=== PATIENT | male | born 1960 | race African-American/Black ===

== ENCOUNTER → 2017-01-07 | Outpatient (CLI) | payer OTHER ==
[2013-11-29 08:09] VITALS: BP 96/67
[~2017-01-07] MED LIST: ACET-58 PO; CYCL10TA2 PO; EZET10TA18 PO; FEXO180T81 PO; GABA-586 PO; KRIL1CAP5 PO; LISI1TAB7 PO; MORP30TA83 PO; NAPR250T6 PO; OXYC30TA PO; PHEN37.5 PO; POTASSIUM CHLO10 MEQ PO; RANI75TA95 PO
--- NOTE | 2017-01-07 12:43 | RAD ---
Indication back pain for 2 weeks. AP and lateral views of the lumbar spine were obtained as well as a coned view targeted to the lumbosacral junction. Note is made of a previous examination 11/11/2013. Spinal fixation cage is noted extending from L2 through S1 similar to the previous exam. An acute finding is not seen although there are now degenerative changes at L2-3 not seen previously. This is manifested primarily as disc space narrowing. There is some associated osteophyte formation. An acute finding in the lumbar spine is not seen. Note is made, particularly on the AP view, of lucencies surrounding the fixation screws associated with L2. This suggests possible loosening. Clinical correlation as to this possibility advised. IMPRESSION: Status post fusion. No acute finding. New degenerative changes at L2-3 relative to the study 3 years ago Possible loosening associated with the fixation screws at L2
== END | disposition home or self-care (01) ==
LOC: RAD 11:46
PROVIDERS: ATTEND Neurological Surgery
DX: M54.5 Low back pain (principal); Z98.1 Arthrodesis status
CPT/HCPCS: 72100

== ENCOUNTER → 2017-04-03 | Outpatient (CLI) | payer OTHER ==
[2013-11-29 08:09] VITALS: BP 96/67
--- NOTE | 2017-04-03 14:58 | KCIC ---
CT scan of the lumbar spine without contrast 04/03/2017 CLINICAL HISTORY: Low back pain which radiates down the left leg. Spinal canal stenosis. History of previous lumbar spine surgery. The low back pain and radiculopathy has worsened since December of this year. TECHNIQUE: Unenhanced, contiguous, 0.6 mm axial sections were obtained through the lumbar spine. 3 mm reconstructed sagittal, axial and coronal images were obtained. One or more of the following individualized dose reduction techniques were utilized for this study: 1. Automated exposure control. 2. Adjustment of the mA and/or kV according to patient size. 3. Use of iterative reconstruction technique. FINDINGS: Comparison study is dated 11/24/2013. Sagittal and coronal reconstructed images demonstrate minimal S-shaped curvature of the thoracolumbar spine. There is straightening of the normal lumbar lordosis. Mild anterolisthesis of L5 in relation to S1 is noted. The patient is post laminectomy and fusion using pedicle screws, stabilizing rods and bone graft material extending from L2-3 through L5-S1. Lucency surrounds the superior pedicle screws at L2. These findings are unchanged. Degenerative changes are seen throughout the lumbar disc spaces consisting of varying degrees of disc space narrowing, vertebral endplate sclerosis and mild to moderate anterior vertebral body osteophyte formation. Vacuum disc phenomenon is seen at L2-3. On the axial images at the L1-2 disc space there is a mild generalized disc bulge. Degenerative changes are seen involving the facet joints bilaterally. These findings do not result in significant central spinal canal or neural foraminal stenosis. At the L2-3 disc space there is a mild generalized disc bulge. Degenerative changes are seen involving the facet joints, left greater than right. These findings do not result in significant central spinal canal stenosis. Mild left neural foraminal stenosis is seen. The right neural foramen is patent. At the L3-4 disc space there is a mild generalized disc bulge. Degenerative changes are seen involving the facet joints bilaterally. These findings do not result in significant central spinal canal or neural foraminal stenosis. At the L4-5 disc space there is a mild generalized disc bulge. Left paracentral/lateral disc osteophyte formation is noted. This extends into the neural foramen. Degenerative changes are seen involving the facet joints bilaterally. These findings do not result in significant central spinal canal stenosis. Mild left neural foraminal stenosis is seen. The right neural foramen is patent. At the L5-S1 disc space there is a mild generalized disc bulge. Posterior vertebral body osteophyte formation is seen which extends into the neural foramen bilaterally. Degenerative changes are seen involving the facet joints, right greater than left. These findings do not result in significant central spinal canal stenosis. Moderate to severe bilateral neural foraminal stenosis is seen. Since the previous examination there has been no significant interval change. IMPRESSION: 1. Post laminectomy and fusion extending from L2-3 to L5-S1. 2. The changes of degenerative disc disease are seen involving the lumbar spine. These findings do not result in significant central spinal canal stenosis at any level. Mild left neural foraminal stenosis is seen at L2-3 and L4-5. Moderate to severe bilateral neural foraminal stenosis is seen at L5-S1. Electronically signed by: Anthony Robles MD (04/03/2017 2:54 PM) [id number]
== END | disposition home or self-care (01) ==
LOC: KCIC CT 11:29
PROVIDERS: ATTEND Neurological Surgery
DX: M51.16 Intervertebral disc disorders with radiculopathy, lumbar region (principal); M48.061 Spinal stenosis, lumbar region without neurogenic claudication
CPT/HCPCS: 72131

== ENCOUNTER → 2017-09-15 | Outpatient (CLI) | payer OTHER | END | disposition home or self-care (01) | LOC: PNCL 08:58 | DX: M79.661 Pain in right lower leg (principal); I10 Essential (primary) hypertension; M54.5 Low back pain; R06.02 Shortness of breath | CPT/HCPCS: 99214 ==

== ENCOUNTER → 2017-09-30 | Outpatient (CLI) | payer OTHER ==
[~2017-09-30] MED LIST changes: -ACET-58 PO; -CYCL10TA2 PO; -EZET10TA18 PO; -FEXO180T81 PO; -GABA-586 PO; +IOHEXOL 180 MG/ML 10 ML VIAL.; -KRIL1CAP5 PO; +LIDOCAINE 1% PF 2 ML VIAL.; -LISI1TAB7 PO; -MORP30TA83 PO; -NAPR250T6 PO; -OXYC30TA PO; -PHEN37.5 PO; -POTASSIUM CHLO10 MEQ PO; -RANI75TA95 PO; +methylPREDNISolone ACETATE 40 MG/ML VIAL.; +methylPREDNISolone ACETATE 80 MG/ML VIAL.
== END | disposition home or self-care (01) ==
LOC: PNCL 08:58
DX: M51.16 Intervertebral disc disorders with radiculopathy, lumbar region (principal); M96.1 Postlaminectomy syndrome, not elsewhere classified; E78.00 Pure hypercholesterolemia, unspecified; I25.10 Atherosclerotic heart disease of native coronary artery without angina pectoris; I10 Essential (primary) hypertension; G47.33 Obstructive sleep apnea (adult) (pediatric); K21.9 Gastro-esophageal reflux disease without esophagitis; E66.9 Obesity, unspecified; M19.90 Unspecified osteoarthritis, unspecified site; Z98.890 Other specified postprocedural states; G62.89 Other specified polyneuropathies; Z98.1 Arthrodesis status; Z82.49 Family history of ischemic heart disease and other diseases of the circulatory system; Z83.79 Family history of other diseases of the digestive system; Z82.0 Family history of epilepsy and other diseases of the nervous system
CPT/HCPCS: 62323; J1030; J1040; Q9965

== ENCOUNTER → 2017-10-14 | Outpatient (CLI) | payer OTHER | END | disposition home or self-care (01) | LOC: PNCL 10:51 | DX: M51.16 Intervertebral disc disorders with radiculopathy, lumbar region (principal); M96.1 Postlaminectomy syndrome, not elsewhere classified | CPT/HCPCS: 99212 ==

== ENCOUNTER → 2017-11-04 | Outpatient (CLI) | payer OTHER ==
[2017-11-04] MEDS: GADOBUTROL 7.5 MMOL/7.5 ML VIAL IV ×2 (13:24)
== END | disposition home or self-care (01) ==
LOC: KCIC MRI 12:19
DX: S33.110A Subluxation of L1/L2 lumbar vertebra, initial encounter (principal); M48.061 Spinal stenosis, lumbar region without neurogenic claudication; I10 Essential (primary) hypertension; E78.00 Pure hypercholesterolemia, unspecified; K21.9 Gastro-esophageal reflux disease without esophagitis; M25.78 Osteophyte, vertebrae; X58.XXXA Exposure to other specified factors, initial encounter; Y93.89 Activity, other specified; Y92.89 Other specified places as the place of occurrence of the external cause; Y99.8 Other external cause status
CPT/HCPCS: 72158; A9585

== ENCOUNTER → 2017-11-12 | Outpatient (CLI) | payer OTHER | END | disposition home or self-care (01) | LOC: PNCL 09:45 | DX: M51.16 Intervertebral disc disorders with radiculopathy, lumbar region (principal); I10 Essential (primary) hypertension; E78.00 Pure hypercholesterolemia, unspecified; K21.9 Gastro-esophageal reflux disease without esophagitis | CPT/HCPCS: 99212 ==

== ENCOUNTER → 2017-12-22 | Outpatient (CLI) | payer OTHER ==
[2013-11-29 08:09] VITALS: BP 96/67
[~2017-12-22] MED LIST changes: +ACET-58 PO; +CHOL100013 PO; +CYCL10TA2 PO; +EZET10TA18 PO; +FEXO180T81 PO; +GABA-586 PO; -IOHEXOL 180 MG/ML 10 ML VIAL.; +KRIL1CAP5 PO; -LIDOCAINE 1% PF 2 ML VIAL.; +LIDOCAINE 2% PF 2ML VIAL. ONE; +LIDOCAINE 2% PF Vial for OR 5 ML VIAL. ONE; +LISI1TAB7 PO; +MORP30TA83 PO; +MULT1TAB52 PO; +NAPR250T6 PO; +OXYC30TA PO; +PHEN37.5 PO; +POTA10TA12 PO; +RANI75TA95 PO; +UBID10CA5 PO; -methylPREDNISolone ACETATE 40 MG/ML VIAL.; -methylPREDNISolone ACETATE 80 MG/ML VIAL.
--- NOTE | 2017-12-23 00:36 | PAIN ---
DATE OF SERVICE: 12/22/2017 PROGRESS NOTE FOR PAIN CLINIC DIAGNOSES: Lumbar radiculopathy with lumbar degenerative disk disease and lumbar post-laminectomy syndrome. HISTORY OF PRESENT ILLNESS: The patient is a 57-year-old male who returns for followup status post caudal epidural steroid injections and scheduled for spinal cord stimulator temporary lead placement today. The patient did well for about a week after some caudal injections he has had these in the past as well. Still significant pain in the low back and right lower extremity greater than left but present bilaterally. We discussed his spinal cord stimulator. The patient did have a psychiatric evaluation, put him in a good category for stimulator implant if necessary. The patient would like to proceed with that today. The patient reports his pain is in the low back, bilateral lower extremities, again worse on the right than the left, mostly in the posterior gluteus, posterior thigh, lateral thigh, posterior calf and into the posterior thigh on the left as well as across the low back. The patient reports significantly debilitating, rates it as a 10 on a scale of 10 at its worst, 9 on average, 8 at its least and is a 9 today. The patient reports it is tingling, burning, cramping, sharp, shooting, radiating, becoming more severe and more unbearable. The patient reports no new motor or sensory deficits and no bowel or bladder incontinence or other complaints. PHYSICAL EXAMINATION: VITAL SIGNS: The patient's blood pressure is 174/71, pulse is 86, respirations are 18, temperature is 98.0 degrees Fahrenheit, height is 5 feet 10 inches and weight is 356 pounds. GENERAL: The patient is awake, alert, oriented, appropriate and very pleasant demeanor. HEENT: Head shows normocephalic and atraumatic. Extraocular movements are intact and symmetrical. Oral cavity: Mucous membranes moist and pink. Dentition is intact. NECK: Shows anterior throat supple without palpable lymphadenopathy noted. Swallow reflex is symmetrical. CHEST: Shows normal on inspection. Breath sounds clear to auscultation bilaterally. HEART: Shows S1 and S2 clear. No murmurs auscultated. ABDOMEN: Soft, nontender and nondistended. No palpable organomegaly is noted. No rebound or guarding demonstrated. BACK: Shows spine grossly in the midline. Some flattening of lumbar lordotic curvature is noted with a well-healed previous surgical scar. The patient's paraspinous musculature shows symmetrical on inspection without obvious asymmetry with palpation shows some moderate tenderness throughout the upper, middle, lower distribution of the paraspinous muscles bilaterally. No tenderness over the sacrum or sacroiliac regions over the spinous processes. Again, extensive scarring is noted from previous surgery. EXTREMITIES: Lower extremities show deep tendon reflexes at 1+ in the patellar and tendo-calcaneus tendons are equal. Motor exam is approximately 4 on a scale of 5 but symmetrical with dorsiflexion and extension. Peripheral pulses are 1+ posterior tibial. No peripheral edema is noted bilaterally. Options were discussed with the patient. The patient's old chart was reviewed as well as his current medication regimen updated. Current review of systems updated today as well. We will proceed with a spinal cord stimulator temporary leads x 2 today with fluoroscopic guidance. Risks were again discussed including, but not limited to bleeding, infection, possibility of epidural hematoma, subsequent neurologic compromise, dural puncture, headaches, spinal cord and/or nerve damage, exposure to fluoroscopy as well as potentially poor results with pain control. The patient understands and wished to proceed. The patient will return to clinic in approximately 1 week for a temporary lead removal and assessment of his pain relief at that time. DIAGNOSES: Lumbar radiculopathy with lumbar degenerative disk disease and post-lumbar laminectomy syndrome. PROCEDURE: Sterile prep and drape using local anesthetic. The patient's lumbar spine, the patient in prone position, was identified and under sterile prep and drape, counted and marked on the exterior upper back at the T8 level with external marker and at this time, the patient's back was then sterilely prepped and draped in the usual fashion using external marker. The lumbar spine was identified and using 1% lidocaine, anesthetized both right and left midline. Right first and left secondary using a 14-gauge [employer]tead needle with stylet. Epidural space was entered under direct fluoroscopic guidance with both AP and lateral views at approximately the T11-T12 interspace with good loss of resistance. Negative aspiration at each site, right and left. The spinal cord stimulator temporary lead wires were then threaded without significant resistance in the midline and verified with lateral fluoroscopy to be posterior in the epidural space x 2 with the left most lead with its superior pole at the superior endplate of T8 and the right most lead with the superior endplate of T9 with the superior pole on the lead itself in staggered fashion, right to left on the leads themselves. This was again verified with lateral fluoroscopy to be posterior in the epidural space. At this time, needles were removed. Suture 2-0 silk was used to suture the leads in place with the anchoring devices under sterile prep and drape again and sterile bandages were applied. Reinforcing tape and bandage were then placed and stimulation was carried out postoperatively with Mr. Kaushik Galloway from [employer]. The patient tolerated procedure well and had no complications, will return in approximately 1 week for removal of the leads and reassessment of the patient's pain at that time. MARILEE MAXWELL MD DR: PANCHO/jonh JOB#: [id number] / [id number]
== END | disposition home or self-care (01) ==
LOC: PNCL 12:57
PROVIDERS: ATTEND Anesthesiology
DX: M51.16 Intervertebral disc disorders with radiculopathy, lumbar region (principal); M96.1 Postlaminectomy syndrome, not elsewhere classified
CPT/HCPCS: 63650; C1897; J2001

== ENCOUNTER → 2017-12-30 | Outpatient (CLI) | payer OTHER ==
[2013-11-29 08:09] VITALS: BP 96/67
[~2017-12-30] MED LIST changes: -LIDOCAINE 2% PF 2ML VIAL. ONE; -LIDOCAINE 2% PF Vial for OR 5 ML VIAL. ONE
--- NOTE | 2017-12-31 06:35 | PAIN ---
DATE OF SERVICE: 12/30/2017 DIAGNOSES: Lumbar radiculopathy with lumbar degenerative disk disease and post-lumbar laminectomy syndrome. HISTORY OF PRESENT ILLNESS: The patient is a 57-year-old male who returns for followup status post spinal cord stimulator temporary lead placement 1 week ago. The patient is returning today reporting at least a 50% improvement overall. The patient reports he has good days and bad days, but most doing much better, sleeping better at night about 3 hours at times, sit up 1 hour at a time, and increasing his activity with greater ease and comfort, getting around more quickly than he did and more comfortably. The patient reports his pain is still a 9 on a scale of 10 at its worst, 8 on average, 7 at its least and is a 7 today. Reports the pain is tingling, burning, aching, sharp, dull, tight, shooting, severe and radiating in the low back and legs with some muscle tightness as well in the legs, but significantly improved by about 50% with the temporary spinal cord stimulator leads. The patient reports no new motor or sensory deficits. No new bowel or bladder incontinence or other complaints. PHYSICAL EXAMINATION: VITAL SIGNS: Today, the patient's blood pressure is 133/81, pulse is 96, respirations 18, temperature 98.5 degrees Fahrenheit, height is 5 feet 9 inches, weight is 363 pounds. GENERAL: The patient is awake, alert, oriented, appropriate, very pleasant demeanor. HEENT: Shows normocephalic, atraumatic. NECK: Shows anterior throat supple. CHEST: Shows breath sounds clear to auscultation bilaterally. ABDOMEN: Soft, nontender, nondistended. BACK: Shows spine grossly in the midline. The patient's lumbar paraspinous muscle shows symmetrical on inspection. With palpation shows some moderate tenderness bilaterally, but only diffusely in the middle and lower distribution of the paraspinous musculature without radiation. The patient's spinal cord stimulator leads were identified and inspected. Good, clean, no exudate, no drainage, no erythema around the site of insertion. Using sterile technique, suture removal kit was utilized to cut the sutures and the leads were removed without difficulty with the tips intact x 2. The patient's back was sterilely cleansed and a bandage applied. We discussed the options with the patient today at the clinic and he would like to proceed with a permanent implant. I asked him to consider this for a few days before he makes his final decision. He will contact us in the next few days and if he wishes to proceed with permanent placement, we will have the arrangements made to have this done. MARILEE MAXWELL MD DR: PANCHO/jonh JOB#: [id number] / [id number]
== END | disposition home or self-care (01) ==
LOC: PNCL 14:48
PROVIDERS: ATTEND Anesthesiology
DX: M51.16 Intervertebral disc disorders with radiculopathy, lumbar region (principal); I10 Essential (primary) hypertension; E78.00 Pure hypercholesterolemia, unspecified; I25.10 Atherosclerotic heart disease of native coronary artery without angina pectoris; K21.9 Gastro-esophageal reflux disease without esophagitis; E66.9 Obesity, unspecified; Z82.49 Family history of ischemic heart disease and other diseases of the circulatory system; Z82.0 Family history of epilepsy and other diseases of the nervous system; Z83.79 Family history of other diseases of the digestive system
CPT/HCPCS: 99212

== ENCOUNTER → 2018-03-25 | Outpatient (CLI) | payer OTHER ==
[2013-11-29 08:09] VITALS: BP 96/67
[~2018-03-25] MED LIST changes: -GABA-586 PO; +GABA300C18 PO; -OXYC30TA PO; +OXYC30TA3 PO; +RANI-348 PO; -RANI75TA95 PO
--- NOTE | 2018-03-25 21:28 | PAIN ---
DATE OF SERVICE: 03/25/2018 PROGRESS NOTE FOR PAIN CLINIC DIAGNOSES: Lumbar radiculopathy with lumbar degenerative disk disease and lumbar post-laminectomy syndrome. HISTORY OF PRESENT ILLNESS: The patient is a 57-year-old male who returns for followup status post spinal cord stimulator implantation that was done outside with Dr. Brand. The patient returns reporting that he is having some increased pain in his low back and left leg to the point to where he was having to use a cane and the pain is fairly significant. The patient did have a reprogramming just about 2 weeks ago with . Kaushik Galloway from [employer] with good results, but the pain has returned now, he reports over about the past week and it has been much more severe in the low back and left leg. The patient is wondering if something has moved, something has changed and is quite concerned about this as the pain is becoming more severe. The patient reports it is a 7-8 on a scale of 10. The patient reports it is waking him from sleep 2-3 times at night. He reports no new motor or sensory deficits, no bowel or bladder incontinence, but still significant pain, although the surgical site has been seen with his surgeon and has been given good reports as to healing well. PHYSICAL EXAMINATION: VITAL SIGNS: The patient's blood pressure is 126/55, pulse is 88, respirations 18, temperature 97.1 degrees Fahrenheit. Height is 5 feet 9 inches, weight is 363 pounds. GENERAL: The patient is awake, alert, oriented, appropriate, very pleasant demeanor. HEENT: Head shows normocephalic, atraumatic. Extraocular movements are intact and symmetrical. Oral cavity: Mucous membranes moist and pink. Dentition is intact. NECK: Shows anterior throat supple. CHEST: Shows breath sounds clear to auscultation bilaterally. HEART: Shows S1, S2 clear. ABDOMEN: Obese, soft, nontender, nondistended. BACK: Shows spine grossly in the midline. Well-healed surgical scars noted in the lumbar distribution as well as the left of midline with easily palpable spinal cord stimulator battery generator, which is nontender with palpation. A well-healed surgical scar is noted over this region as well. The patient's back shows good rotation of motion as well as extension and flexion without difficulty. EXTREMITIES: Lower extremities show deep tendon reflexes 1+ in the patellar and tendo calcaneus tendons. Motor exam is strong with 5/5 dorsiflexion and extension bilaterally. Peripheral pulses are 1+ posterior tibial. No peripheral edema is noted. Options were discussed with the patient. The patient's old chart was reviewed as his current medication regimen updated. Current review of systems updated today as well. We will take a spot film with the C-arm of his generator as well as the stimulator wires to check for intact wires as well as placement. This was done today with good demonstration of the superior lead in the midline and posterior with the top of the lead at the mid body of T8 and the second lead midline posterior and the top of the lead at the mid body of T9. The patient was having difficulty keeping his appointment today and the [employer] sales representative that was here to reprogram him was unable to wait any longer and needed to go to another appointment and we will contact the [employer] sales representative to see if this can be rescheduled with him and to compare the x-ray taken today with that from surgical placement. The patient understands and we will contact [employer] sales representative and the patient to have the reprogramming done in the near future. MARILEE MAXWELL MD DR: PANCHO/jonh JOB#: [id number] / [id number]
== END | disposition home or self-care (01) ==
LOC: PNCL 12:37
PROVIDERS: ATTEND Anesthesiology
DX: M51.16 Intervertebral disc disorders with radiculopathy, lumbar region (principal); M96.1 Postlaminectomy syndrome, not elsewhere classified
CPT/HCPCS: 76000; 77002

== ENCOUNTER → 2018-11-20 | Outpatient (CLI) | payer OTHER ==
[2013-11-29 08:09] VITALS: BP 96/67
--- NOTE | 2018-11-20 17:43 | KCIC ---
EXAM: CT lumbar spine without IV contrast CLINICAL HISTORY: Lumbar radiculopathy COMPARISON: None available. TECHNIQUE: Helical CT was performed through the lumbar spine. Axial, coronal and sagittal reformatted images were generated. PQRS compliance statement - One or more of the following individualized dose reduction techniques were utilized for this study: 1. Automated exposure control 2. Adjustment of the mA and/or kV according to patient size 3. Use of iterative reconstruction technique FINDINGS: For the purposes of this report there are 5 nonrib-bearing lumbar-type vertebral bodies. Straightening of the normal lumbar lordosis. There is approximately 9 mm anterolisthesis of L5 on S1. Postoperative changes of L2-S1 posterolateral fusion is seen with associated multifocal laminotomy change. Periscrew lucency is seen about the L2 pedicle screws bilaterally. Hardware appears grossly intact small stimulator leads are seen entering the central canal at the T12-L1 level, visualized segments are grossly intact. There is moderate to severe disc height loss at every level except for severe disc height loss at L5-S1. Associated prominent anterior endplate osteophytes are seen. L1-L2: Generalized disc bulge with superimposed central disc protrusion with facet degenerative changes results in moderate to severe central canal stenosis and moderate bilateral neural foraminal narrowing. L2-L3: Generalized disc bulge and ligamentum flavum hypertrophy and facet degenerative changes results in mild central canal stenosis and mild bilateral neural foraminal narrowing. L3-L4: Generalized disc bulge with ligamentum flavum hypertrophy and facet degenerative changes results in moderate to severe central canal stenosis with moderate bilateral neural foraminal narrowing, right greater than left L4-L5: Evaluation is markedly limited at this level given streak artifact from hardware and beam attenuation.. L5-S1: Evaluation is markedly limited at this level given streak artifact from hardware and beam attenuation.. IMPRESSION: 1. Posterior lateral fusion L2-S1. Periscrew lucency about the L2 pedicle screws may suggest loosening or motion. 2. Multilevel spondylosis as above 3. Negative acute fracture. Electronically signed by: Derick Tompkins MD (11/20/2018 5:40 PM) [facility]
== END | disposition home or self-care (01) ==
LOC: KCIC CT 10:58
PROVIDERS: ATTEND Neurological Surgery
DX: M47.26 Other spondylosis with radiculopathy, lumbar region (principal); M51.16 Intervertebral disc disorders with radiculopathy, lumbar region; M48.061 Spinal stenosis, lumbar region without neurogenic claudication; M25.78 Osteophyte, vertebrae; M89.38 Hypertrophy of bone, other site; Z98.1 Arthrodesis status
CPT/HCPCS: 72131

== ENCOUNTER → 2019-11-04 | Outpatient (CLI) | payer OTHER ==
[2013-11-29 08:09] VITALS: BP 96/67
[~2019-11-04] MED LIST changes: -EZET10TA18 PO; +EZET10TA20 PO; +LISI1TAB20 PO; -LISI1TAB7 PO; +MULT-445 PO; -MULT1TAB52 PO; -RANI-348 PO; +RANI-369 PO
--- NOTE | 2019-11-04 09:58 | RAD ---
EXAM: Bilateral lower extremity venous Doppler sonogram. HISTORY: Pain and swelling. TECHNIQUE: Cheung scale and color Doppler sonographic evaluation of the bilateral lower extremity veins with spectral waveform analysis was performed. FINDINGS: There is normal color flow, normal compressibility and there are normal spectral waveforms in the common femoral, superficial femoral, popliteal, posterior tibial and greater saphenous veins. IMPRESSION: No Doppler evidence of lower extremity deep venous thrombosis. Electronically signed by: Emmy Velez MD (11/04/2019 9:55 AM) [id number]
== END | disposition home or self-care (01) ==
LOC: US 09:42
PROVIDERS: ATTEND Physician Assistant
DX: R22.43 Localized swelling, mass and lump, lower limb, bilateral (principal)
CPT/HCPCS: 93970

== ENCOUNTER → 2020-07-07 | Outpatient (CLI) | payer OTHER ==
[2013-11-29 08:09] VITALS: BP 96/67
[~2020-07-07] MED LIST changes: +FAMO-63 PO; +NAPR-699 PO; -NAPR250T6 PO
== END ==
LOC: LAB 12:16
PROVIDERS: ATTEND Internal Medicine Gastroenterology
DX: Z01.812 Encounter for preprocedural laboratory examination (principal); Z12.11 Encounter for screening for malignant neoplasm of colon; Z20.822 Contact with and (suspected) exposure to COVID-19
CPT/HCPCS: U0003

== ENCOUNTER → 2020-07-10 | Day surgery (SDC) | payer OTHER ==
[~2020-07-10] MED LIST changes: +IV RINGERS,LACTATED 1000ML 1,000 ML IV SCH; +PROPOFOL 10 MG/ML (20ML) VIAL. IV ONE
--- NOTE | 2020-07-10 13:29 | PDOC4 ---
PROCEDURE Procedure Colonoscopy with biopsy Indication: screening, average risk, no prior Meds: per anesthesia. Findings: ASIA--normal. --'Scope advanced to cecum. Prep adequate. Mucosa normal. Scattered diverticula, sigmoid to distal transverse. 6mm sessile polyp, distal descending, biopsied off. Internal hemorrhoids on retroflex. Exam otherwise normal. Joel. well. IMP: one polyp diverticulosis internal hemorrhoids. REC: await path. Resume diet and meds. F/u in office in 2 weeks. Repeat exam in 5 years. BRANDY BARAHONA MD Jul 10, 2020 13:29
[2020-07-10 13:44] VITALS: BP 122/72
== END | disposition home or self-care (01) ==
LOC: SURG 11:59
PROVIDERS: ATTEND Internal Medicine Gastroenterology
DX: Z12.11 Encounter for screening for malignant neoplasm of colon (principal); K57.30 Diverticulosis of large intestine without perforation or abscess without bleeding; K64.0 First degree hemorrhoids; K63.5 Polyp of colon; K63.89 Other specified diseases of intestine; E78.00 Pure hypercholesterolemia, unspecified; I10 Essential (primary) hypertension; K21.9 Gastro-esophageal reflux disease without esophagitis; G47.30 Sleep apnea, unspecified; M19.90 Unspecified osteoarthritis, unspecified site; E66.9 Obesity, unspecified; Z79.899 Other long term (current) drug therapy; Z98.890 Other specified postprocedural states; Z82.49 Family history of ischemic heart disease and other diseases of the circulatory system; Z83.3 Family history of diabetes mellitus
CPT/HCPCS: 45380; J2704